=== PATIENT | female | born 1970 | race Caucasian/White ===

== ENCOUNTER 2018-04-28 12:08 | Day surgery (SDC) | payer BC ==
[~2018-04-28] VITALS: Ht 165.1 cm; Wt 83.9 kg
[~2018-04-28 12:08] MED LIST: ADVIL,NUPRIN,M200 MG PO; ANIMAL CHEWS1 EACH PO; L-LYSINE500 M2 PO; SPRINTEC1 EACH PO
[2018-04-28 12:34] VITALS: BP 144/75
[2018-04-28 16:00] VITALS: BP 104/54
[2018-04-28 17:10] VITALS: BP 116/67
[2018-04-28 17:45] VITALS: BP 111/67
== END 2018-04-28 17:50 | disposition home or self-care (01) ==
LOC: SDC 12:08
DX: N92.0 Excessive and frequent menstruation with regular cycle (principal); N72 Inflammatory disease of cervix uteri; N80.0 Endometriosis of uterus; N83.291 Other ovarian cyst, right side; G44.229 Chronic tension-type headache, not intractable; Z88.1 Allergy status to other antibiotic agents; Z80.3 Family history of malignant neoplasm of breast; Z80.42 Family history of malignant neoplasm of prostate
CPT/HCPCS: 88307; J0131; J1100; J1580; J1885; J2250; J2405; J2710; J3010; J7050; J7643